=== PATIENT | female | born 1990 ===

== ENCOUNTER 2016-10-20 19:58 | Emergency (ER) | payer SELFPAY ==
[2016-10-20 20:03] VITALS: BP 139/78; PULSE 106; RESP 18; TEMP 98; O2SAT 100
[2016-10-20 20:04] VITALS: BMI 18.6
--- NOTE | 2016-10-20 20:52 | ED PDOC ---
HPI: Psych/Substance Abuse Time Seen by Provider: 10/20/16 20:31 Chief Complaint (Nursing): Substance Abuse Chief Complaint (Provider): substance abuse History Per: Patient History/Exam Limitations: no limitations Additional History Per: Patient Additional Complaint(s): 25 y/o female brought in by EMS for eval of substance abuse. Patient admits to smoking a small amount of PCP tonight. Patient denies acute medical or psychiatric complaints. Past Medical History Reviewed: Historical Data, Nursing Documentation, Vital Signs Vital Signs: Last Vital Signs Temp 98 F 10/20/16 19:59 Pulse 106 H 10/20/16 19:59 Resp 18 10/20/16 19:59 BP 139/78 10/20/16 19:59 Pulse Ox 100 10/20/16 19:59 - Medical History PMH: No Chronic Diseases - Family History Family History: States: Unknown Family Hx - Living Arrangements Living Arrangements: Alone - Allergies Allergies/Adverse Reactions: Allergies Allergy/AdvReac Type Severity Reaction Status Date / Time No Known Allergies Allergy Verified 10/20/16 20:04 Review of Systems ROS Statement: Except As Marked, All Systems Reviewed And Found Negative Physical Exam - Reviewed Nursing Documentation Reviewed: Yes Vital Signs Reviewed: Yes - Physical Exam Appears: Positive for: Well, Non-toxic, No Acute Distress Head Exam: Positive for: ATRAUMATIC, NORMAL INSPECTION, NORMOCEPHALIC Skin: Positive for: Normal Color Eye Exam: Positive for: Normal appearance ENT: Positive for: Normal ENT Inspection Cardiovascular/Chest: Positive for: Regular Rate, Rhythm Respiratory: Positive for: Normal Breath Sounds Back: Positive for: Normal Inspection Extremity: Positive for: Normal ROM Neurologic/Psych: Positive for: Alert, Oriented, Gait (steady) - ECG O2 Sat by Pulse Oximetry: 100 - Progress ED Course And Treament: Patient awake, alert, oriented x 3. Ambulating steady gait. Vitals stable. Patient without complaints. Stable for discharge. Disposition - Clinical Impression Clinical Impression: PCP abuse - Patient ED Disposition Is Patient to be Admitted: No Counseled Patient/Family Regarding: Diagnosis, Need For Followup - Disposition Disposition: Routine/Home Disposition Time: 20:52 Condition: STABLE Instructions: Polysubstance Abuse (ED)
== END 2016-10-20 21:26 | disposition home or self-care (01) ==
LOC: H.ER 19:58
DX: F16.10 Hallucinogen abuse, uncomplicated (principal)

== ENCOUNTER 2017-09-20 20:50 | Emergency (ER) | payer SELFPAY ==
[2017-09-20 20:50] VITALS: BMI 23.3
[2017-09-20 20:56] VITALS: TEMP 98
[2017-09-20] MEDS ORDERED: Sodium Chloride 0.9% 1,000 ML IV STA (21:14)
--- NOTE | 2017-09-20 21:47 | ED PDOC ---
HPI: Psych/Substance Abuse Time Seen by Provider: 09/20/17 21:11 Chief Complaint (Nursing): Substance Abuse ED Caveat: Intoxicated History Per: Patient (26 yo female brought by PD under arrest after found altered with possession of PCP. Patient denies physical complaints.) History/Exam Limitations: no limitations Past Medical History Reviewed: Historical Data, Nursing Documentation, Vital Signs Vital Signs: Last Vital Signs Temp 98.0 F 09/20/17 20:53 Pulse 165 H 09/20/17 21:14 Resp 22 09/20/17 21:14 BP 159/101 H 09/20/17 21:14 Pulse Ox 99 09/20/17 21:14 - Medical History PMH: No Chronic Diseases - Surgical History Surgical History: No Surg Hx - Family History Family History: States: Unknown Family Hx - Living Arrangements Living Arrangements: With Family - Social History Alcohol: Occasional Drugs: Other (PCP) - Immunization History Hx Tetanus Toxoid Vaccination: No Hx Influenza Vaccination: No Hx Pneumococcal Vaccination: No - Home Medications Home Medications: Ambulatory Orders Medication Instructions Recorded oxyCODONE/Acetaminophen [Percocet 1 tab PO QID PRN #15 tab 12/09/16 5/325 mg Tab] - Allergies Allergies/Adverse Reactions: Allergies Allergy/AdvReac Type Severity Reaction Status Date / Time No Known Allergies Allergy Verified 09/20/17 20:53 Review of Systems Review Of Systems: ROS cannot be obtained secondary to pt's inabilty to answer questions. Constitutional: Negative for: Fever Cardiovascular: Negative for: Chest Pain Respiratory: Negative for: Shortness of Breath Physical Exam - Reviewed Nursing Documentation Reviewed: Yes Vital Signs Reviewed: Yes - Physical Exam Appears: Positive for: Well, No Acute Distress Head Exam: Positive for: NORMOCEPHALIC Skin: Positive for: Normal Color Eye Exam: Positive for: Normal appearance Neck: Positive for: Normal. Negative for: Painless ROM Cardiovascular/Chest: Positive for: Regular Rate, Rhythm Respiratory: Positive for: Normal Breath Sounds Gastrointestinal/Abdominal: Positive for: Normal Exam Neurologic/Psych: Positive for: Alert - Laboratory Results Result Diagrams: 09/20/17 21:37 09/20/17 21:37 - ECG ECG Rhythm: Positive for: Normal QRS, Normal ST Segment Interpretation Of ECG: normal O2 Sat by Pulse Oximetry: 99 Disposition - Clinical Impression Clinical Impression: Polysubstance abuse - Patient ED Disposition Is Patient to be Admitted: No Doctor Will See Patient In The: Office Counseled Patient/Family Regarding: Diagnosis, Need For Followup - Disposition Disposition: Routine/Home Disposition Time: 23:06 Condition: IMPROVED Additional Instructions: urine toxicology - positive for 3 illicit drugs Following as instructed Instructions: Polysubstance Abuse Forms: [employer] (Nepali) - Pt Status Changed To: Hospital Disposition Of: Observation - POA Present On Arrival: None
[2017-09-20 22:10] LABS: BASO % 0.3 % (0.0-2.0); EOS # 0.1 K/uL (0.0-0.7); EOS % 1.5 % (0.0-4.0); HEMOGLOBIN 13.9 g/dL (12.0-16.0); LYMPH # 2.3 K/uL (1.0-4.3); LYMPH % 28.2 % (20.0-40.0); MEAN CELL VOLUME 97.3 fl (81.0-99.0); MEAN CORPUSCULAR HEMOGLOBIN 33.3 pg (27.0-31.0); MEAN CORPUSCULAR HGB CONC 34.3 g/dL (33.0-37.0); MEAN PLATELET VOLUME 8.5 fl (7.2-11.7); MONO # 0.6 K/uL (0.0-0.8); MONO % 7.5 % (0.0-10.0); NEUT % 62.5 % (50.0-75.0); NRBC % 0.2 % (0.0-0.0); RBC 4.17 Mil/uL (3.80-5.20)
[2017-09-20 22:26] LABS: ALB/GLOB RATIO 1.3 (1.0-2.1); ALBUMIN 4.5 g/dL (3.5-5.0); ALT/SGPT 67 U/L (9-52); AST/SGOT 54 U/L (14-36); BLOOD UREA NITROGEN 17 mg/dl (7-17); CALCIUM 9.7 mg/dL (8.4-10.2); GFR AFRICAN-AMERICAN > 60; GFR NON-AFRICAN AMERICAN > 60
[2017-09-20 22:29] LABS: SQUAMOUS EPITHIAL 1 /hpf (0-5); URINE BILIRUBIN NEGATIVE (NEGATIVE); URINE BLOOD NEGATIVE (NEGATIVE); URINE CLARITY CLEAR (Clear); URINE COLOR STRAW (YELLOW); URINE GLUCOSE (UA) NEG (Normal); URINE LEUKOCYTE ESTERASE NEG Leu/uL (Negative); URINE PROTEIN NEGATIVE (NEGATIVE); URINE UROBILINOGEN 0.2-1.0 mg/dL (0.2-1.0)
[2017-09-20 22:30] VITALS: BP 118/72; PULSE 89; RESP 16
[2017-09-20 22:57] LABS: BARBITURATES, UR NEGATIVE (NEGATIVE); BENZODIAZEPINES, UR NEGATIVE (NEGATIVE); OPIATES, UR NEGATIVE (NEGATIVE); PHENCYCLIDINE, UR POSITIVE (NEGATIVE)
[2017-09-20 23:08] VITALS: O2SAT 99
--- NOTE | 2017-09-21 08:59 | CARD ---
APPROVED REPORT EKG Measurement Heart [id number] <Conclusion> Normal sinus rhythm Normal ECG
== END 2017-09-20 23:31 ==
LOC: H.ER 20:50
DX: F19.10 Other psychoactive substance abuse, uncomplicated (principal)
CPT/HCPCS: 80053; 81003; 81025; 85025; 93005; 96360; 99284; G0480; J7040

== ENCOUNTER 2018-05-13 15:57 | Emergency (ER) | payer MEDICAID ==
[2018-05-13 15:57] VITALS: BMI 23.3
[2018-05-13 16:03] VITALS: RESP 20
--- NOTE | 2018-05-13 16:29 | ED PDOC ---
HPI: Psych/Substance Abuse Time Seen by Provider: 05/13/18 16:26 Chief Complaint (Nursing): Substance Abuse Additional Complaint(s): 27 yo female, denies any PMH, presents to ED by EMS, due to "bizarre behavior." Patient was found by bystanders sleeping in a hallway. Pt awake, alert and oriented x 3 at this time. answering questions appropriately and is cooperating with writer technical publications. Pt reports "I reached into my purse to grab a cigarette, and I ended up smoking something else." Pt offers no physical complaints at this time. no SI or HI. Past Medical History Reviewed: Nursing Documentation, Vital Signs Vital Signs: Last Vital Signs Temp 98.9 F 05/13/18 16:00 Pulse 107 H 05/13/18 16:00 Resp 20 05/13/18 16:00 BP 139/99 H 05/13/18 16:00 Pulse Ox 100 05/13/18 16:00 - Medical History PMH: No Chronic Diseases Denies: Chronic Kidney Disease - Surgical History Surgical History: No Surg Hx - Family History Family History: States: Unknown Family Hx - Living Arrangements Living Arrangements: With Friends/Others - Social History Current smoker - smoking cessation education provided: Yes Alcohol: Social Drugs: Cannabis - Immunization History Hx Tetanus Toxoid Vaccination: No Hx Influenza Vaccination: No Hx Pneumococcal Vaccination: No - Home Medications Home Medications: Ambulatory Orders Medication Instructions Recorded No Known Home Med 04/27/18 - Allergies Allergies/Adverse Reactions: Allergies Allergy/AdvReac Type Severity Reaction Status Date / Time No Known Allergies Allergy Verified 05/13/18 16:00 Review of Systems ROS Statement: Except As Marked, All Systems Reviewed And Found Negative Physical Exam - Reviewed Nursing Documentation Reviewed: Yes Vital Signs Reviewed: Yes - Physical Exam Appears: Positive for: Well, Non-toxic, No Acute Distress Head Exam: Positive for: ATRAUMATIC, NORMAL INSPECTION, NORMOCEPHALIC Skin: Positive for: Normal Color, Warm, DRY Eye Exam: Positive for: EOMI, Normal appearance, PERRL ENT: Positive for: Normal ENT Inspection Neck: Positive for: Normal, Painless ROM Cardiovascular/Chest: Positive for: Regular Rate, Rhythm Respiratory: Positive for: CNT, Normal Breath Sounds Gastrointestinal/Abdominal: Positive for: Normal Exam, Soft Back: Positive for: Normal Inspection Extremity: Positive for: Normal ROM Neurologic/Psych: Positive for: Alert, Oriented - ECG O2 Sat by Pulse Oximetry: 100 Medical Decision Making Medical Decision Making: Pt calm and cooperative, physical exam is benign. Medical intervention not clinically indicated at this time Pt stable for discharge, ambulating with steady gait repeat P: 82 BP: 128/82 Disposition - Clinical Impression Clinical Impression: Substance abuse - Patient ED Disposition Is Patient to be Admitted: No - Disposition Disposition: Routine/Home Disposition Time: 16:34 Condition: STABLE Instructions: Drug Abuse and Drug Addiction (DC) Forms: [employer] (Urdu)
[2018-05-13 16:46] VITALS: BP 138/75; PULSE 100; TEMP 98; O2SAT 98
== END 2018-05-13 16:47 | disposition home or self-care (01) ==
LOC: H.ER 15:57
DX: F19.10 Other psychoactive substance abuse, uncomplicated (principal)